=== PATIENT | female | born 1970 | race Caucasian/White ===

== ENCOUNTER 2025-02-26 07:18 | Observation (INO) ==
--- NOTE | 2025-02-20 13:18 | Anesthesiology Consultation ---
Date of Service February 20, 2025 Assessment & Plan (1) Encounter for pre-operative examination: Chart Review Chart Review: Acceptable Risk for Surgery and Patient NOT seen in Pre Admission Testing T11 compression fracture 12/2024 -Infectious Disease screening: Per PAT nursing assessment on 02/18/25. No known infectious disease contacts in past 10 days or current infectious disease symptoms. No recent travel outside the country. History Surgery Operation Date: 02/26/25 09:25 Proposed Procedures p Cystoscopy, Ureteronephroscopy, Retrograde Pyelogram, with Possible Ureteral Dilation, Laser Destruction or Extraction of the Stone, Insertion or Exchange of Stent Catheter - Right - Dusty Castro MD Height/Weight Height: 5 ft 5 in Weight: 70.307 kg Allergies Allergy/AdvReac Type Severity Reaction Status Date / Time tetanus toxoid, adsorbed Allergy Unknown UNKNOWN Verified 02/18/25 13:51 PER PT codeine AdvReac Unknown Vomiting Verified 02/18/25 13:51 Medications Home Medications Medication Instructions Recorded Confirmed Last Taken albuterol sulfate 90 mcg/actuation 1 inh inhalation QID PRN Wheezing 04/25/23 02/18/25 Unknown aerosol inhaler atorvastatin 10 mg tablet 10 mg PO QAM 04/25/23 02/18/25 Unknown baclofen 10 mg tablet 10 mg PO DAILY PRN Spasms 04/25/23 02/18/25 Unknown duloxetine 30 mg capsule,delayed 30 mg PO HS 04/25/23 02/18/25 Unknown release (Cymbalta) furosemide 40 mg tablet (Lasix) 40 mg PO QAM 04/25/23 02/18/25 Unknown gabapentin 600 mg tablet 600 mg PO TID 04/25/23 02/18/25 Unknown hydroxyzine HCl 25 mg tablet 25 mg PO BID PRN Anxiety 04/25/23 02/18/25 Unknown ibuprofen 800 mg tablet 800 mg PO Q8H PRN Pain 04/25/23 02/18/25 Unknown linaclotide 72 mcg capsule 72 mcg PO QAM 04/25/23 02/18/25 Unknown (Linzess) melatonin 10 mg tablet 10 mg PO HS PRN Sleep 04/25/23 02/18/25 Unknown oxcarbazepine 300 mg tablet 300 mg PO TID 04/25/23 02/18/25 Unknown oxycodone-acetaminophen 7.5 mg-325 1 tab PO QID PRN Pain 04/25/23 02/18/25 Unknown mg tablet paroxetine HCl 40 mg tablet 40 mg PO QAM 04/25/23 02/18/25 Unknown prazosin 2 mg capsule 2 mg PO QPM 04/25/23 02/18/25 Unknown morphine 15 mg tablet,extended 15 mg PO HS 05/03/23 02/18/25 Unknown release quetiapine 100 mg tablet 100 mg PO QPM 09/25/23 02/18/25 Unknown quetiapine 400 mg tablet (Seroquel) 400 mg PO HS 09/25/23 02/18/25 Unknown Past Medical History Medical History Anxiety Cervical radiculopathy sees pain management Chronic back pain Demyelinating changes in brain pt unaware Brain MRI 2022 showed small focal areas of hyperintensity that could represent demyelinating disease but also could be inflammatory/infectious (Lymes), migraines or chronic microvascular disease Depression Disorder of lung pt reports just gets s.o.b on occ. prn inh for this, no asthma dx. Fracture of T11 vertebra from fall on Dec 12, 2024 > no breathing issues, just pain, trying to get in with [facility], awaiting appt. Mild compression fracture of T11 noted on A/P CT from 12/19/24 Gait abnormality GERD (gastroesophageal reflux disease) History of COVID-2020 History of kidney stones passed on own in past Hyperlipidemia IBS (irritable bowel syndrome) Kidney cysts Migraines Night terrors PTSD (post-traumatic stress disorder) Tremor Past Family History Family History Grandfather (Paternal) Myocardial infarction Hypertension Uncle Myocardial infarction Father Hypertension Grandmother (Maternal) Hypertension Stroke Mother Rheumatoid arthritis Past Surgical History Surgical History History of appendectomy History of bunionectomy right foot x4 total due to getting sepsis from the sx History of colonoscopy History of esophagogastroduodenoscopy (EGD) History of hysterectomy History of tonsillectomy History of tooth extraction Hx of fusion of cervical spine C5-6 > limited ROM all directions Social History Smoking Status: Current every day smoker Smoking cigarettes per day: 10-12 cigs per day > advised npo by PAT nursing Do You Dip or Chew Tobacco: No Hx Alcohol Use: No Hx Substance Use: No substance use type: does not use Testing Laboratory Results 02/06/25= WBC: 9.0 H/H: 10.6/32.6 PLATELETS: 235 SODIUM: 137 POTASSIUM: 4.4 CHLORIDE: 110 CO2: 26.0 BUN: 20.0 CREATININE: 1.40 GLUCOSE: 73 GFR: 44 Electrocardiogram Date: 02/06/25 SR at 86bpm Possible left atrial enlargement Possible RV conduction delay unconfirmed- will need reviewed by anesthesiologist DOS Chest X-Ray Date: 02/06/25 Findings: + NAD Other Testing MRI Brain 03/24/23= Multiple small focal areas of FLAIR hyperintensities noted bilaterally within the deep white matter. Differential considerations include demyelinating disorders such as MS, inflammatory/infectious disorders such as Lymes, migraines and chronic microvascular ischemia changes
[~2025-02-26 07:18] MED LIST: DEXAMETHASONE SOD INJ 4 MG/ML VIAL ONE; GLYCOPYRROLATE 0.2 MG/ML VIAL ONE; LIDOCAINE 2% 2 ML VIAL/AMP(20MG/ML) INFIL ONE; MIDAZOLAM HCL 1 MG/ML 2ML VIAL ONE; ONDANSETRON INJ 2 MG/ML 2 ML VIAL ONE; PROPOFOL IV EMULSION 10 MG/ML 20 ML VIAL IV ONE
[2025-02-26] MEDS: LR 15ML/HR IV SCH (07:52)
[2025-02-26] MEDS ORDERED: PROMETHAZINE HCL 6.25 MG in SODIUM CHLORIDE 0.9% 50 ML IV PRN (08:33)
[2025-02-26] MEDS ORDERED: ATROPINE SULFATE 0.1 MG/ML 10ML SYR IV PRN (08:33)
--- NOTE | 2025-02-26 09:04 | History & Physical Bridge Note ---
Date of Service February 26, 2025 History & Physical Bridge Note I have examined the patient, reviewed the History & Physical and in the interval since the performance of the History & Physical I have noted the following changes of clinical significance: no changes noted
[2025-02-26] MEDS ORDERED: KETAMINE HCL 10MG/ML SYR ONE (09:51)
[2025-02-26] MEDS ORDERED: DIATRIZOATE MEGLUMINE 30% 100ML VIAL INSTIL PRN (10:23)
--- NOTE | 2025-02-26 10:37 | Post Operative Brief Note ---
PG Immediate Post Op with CF Date of Surgery February 26, 2025 Pre & Post Diagnosis Operation Date: 02/26/25 08:35 Pre-Op Diagnosis: Calculus of Ureter Post-Op Diagnosis: Calculus of Ureter I identified the patient and participated in the time-out.: Yes Procedure Operation Date: 02/26/25 08:35 Actual Procedures p Cystoscopy, Ureteronephroscopy, Retrograde Pyelogram, with Ureteral Dilation, Laser Destruction of the Stone, Insertion of Stent Catheter - Right(Right) - Dusty Castro MD Surgeon Dusty Castro MD Digital Media Associate na Estimated Blood Loss 5 Findings Consistent with Post-Op Diagnosis impacted right proximal ureteral stone Specimens Specimen Description: #1- Urine for culture
--- NOTE | 2025-02-26 10:50 | Operative Report ---
PG Post Operative Report Pre & Post Diagnosis Operation Date: 02/26/25 08:35 Pre-Op Diagnosis: Calculus of Ureter Post-Op Diagnosis: Calculus of Ureter I identified the patient and participated in the time-out.: Yes Procedure Operation Date: 02/26/25 08:35 Actual Procedures p Cystoscopy, Ureteronephroscopy, Retrograde Pyelogram, with Ureteral Dilation, Laser Destruction of the Stone, (Right) - Dusty Castro MD s Insertion of Stent Catheter - Right(Right) - Dusty Castro MD Surgeon Dusty Castro MD Machine Assistant na Estimated Blood Loss 5 Findings Consistent with Post-Op Diagnosis Specimens right renal pelvis urine for culture Description of Procedure SURGEON: Dr. Castro POULTRY SLAUGHTERER: N/A PREOPERATIVE DIAGNOSIS: right ureteral stone POSTOPERATIVE DIAGNOSIS: impacted right ureteral stone PROCEDURE: cystoscopy, right retrograde pyelogram, ureteral dilation, right semi rigid and flexible ureteroscopy, laser lithotripsy, right ureteral stent placement FINDINGS: 1. impacted right ureteral stone, fragmented to small passable pieces right ureteral stent placed curls in renal pelvis and bladder secured to string ANESTHESIA: General ESTIMATED BLOOD LOSS: N/A TUBES AND DRAINS: right ureteral stent 6 fr x 24 cm SPECIMENS: none COMPLICATIONS: none INDICATIONS FOR PROCEDURE: See preoperative diagnosis OPERATIVE DETAIL: The patient was prepped and draped in the usual fashion in the operating room. Antibiotics were given prior to starting the procedure. A well lubricated rigid cystoscope was inserted into the urethral meatus and advanced into the bladder. Care was taken to keep the lumen in the center of view. Cystourethroscopy was completed and unremarkable. The left and right ureteral orifices were identified in the orthotopic positions. A 5 fr open ended ureteral catheter was advanced into the right ureteral orifice over a straight sensor wire. The wire was removed and a retrograde pyelogram was performed and notable for a ureteral filling defect consistent with stone and no opacification of the collecting system. The wire was replaced and the open ended catheter was removed. The cystoscope was removed with the sensor wire and the bladder was drained. No- Touch Semi rigid ureteroscopy was attempted with the disposable salazar ureteroscope but was unable to traverse the UO. A wire was placed through the working channel into the UO and the scope was successfully manipulated into the distal ureter thent eh wire was removed and the scope was advanced to the mid ureter. It was impossible to traverse further seemingly the scope was too inflexible to advance without undue tension. A wire was placed the scope was removed and a flexible ureteroscope was placed over the wire then advanced to the proximal ureter where a large impacted ureteral stone was encountered. The stone was gradually fragmented to completion using a 200 micron thulium laser fiber. The bladder was serially evacuated to reduce intrarenal pressure, once a lumen was established a retrograde was performed and the renal pelvis was serially evacuated using an open ended catheter to reduce renal pressure. Low power settings were used on the laser, 0.8 J at 10 per second in short bursts with maximal irrigation was used to reduce this patients already high risk of ureteral stricture. Once the stone burden was cleared pyeloscopy was attmepoted to look for residual fragments this was unsuccessful as the narrowed ureter would not accommodate the scope without restricted mobility. A sensor wire was introduced with positioning confirmed on fluoroscopy. A 6 fr x 24 cm ureteral stent was then placed with positioning confirmed fluoroscopically. All parts of the cystoscope and ureteroscope were removed intact from the patient. The patient tolerated the procedure well. Please note thatI was present for and directly performed all components of the procedure. I attest to the content of the Intraoperative Record and any orders documented therein. Any exceptions are noted below.
[2025-02-26] MEDS: ALBUT/IPRATROP 3MG/0.5MG NEB 3 ML VIAL NEB STA (11:13)
[2025-02-26] MEDS: HYDROmorphone INJ 2 MG/ML SYR/VIAL IV PRN ×2 (11:39→14:24)
--- NOTE | 2025-02-26 11:39 | Fluoroscopy Report ---
INTRAOPERATIVE FLUOROSCOPIC IMAGES: CLINICAL HISTORY: Hydronephrosis Fluoroscopy time: 28 seconds Number of fluoroscopic images: 7 Ka,r: 7.4 mGy: FINDINGS: 7 fluoroscopic spot images are provided for interpretation. The right ureter was catheteriz ed and retrograde fashion. A ureteroscope was introduced. There is right-sided hydronephrosis. The fi nal images demonstrate placement of a double pigtail right-sided ureteral stent. The proximal pigtail is not fully formed. IMPRESSION: Fluoroscopic spot images obtained during a retrograde study and placement of a right-side d nephroureteral stent Electronically signed by: Murtaza Samson M.D. 02/26/2025 11:38 AM
--- NOTE | 2025-02-26 12:56 | XRay Report ---
XR chest 1V portable CLINICAL HISTORY: Pt with supplemental O2 requirement postop COMPARISON STUDY: 10/25/2011 FINDINGS: The cardiac and mediastinal contours are normal. There is no focal pulmonary consolidation. There are no pleural effusions. There is no pneumothorax. There is a slight interval increase in int erstitium which may represent mild fluid overload. Note is made of postsurgical changes within the ce rvical spine. IMPRESSION: 1. Slight interval elevation of the interstitium suggesting mild fluid overload. No evidence of focal pulmonary consolidation . ACT 112: Negative or not required by law. Electronically signed by: Murtaza Samson M.D. 02/26/2025 12:55 PM
--- NOTE | 2025-02-26 12:59 | Anesthesiology Progress Note ---
Date of Service February 26, 2025 Anesthesia Post Procedure Vital Signs Vital Signs: Temp Pulse Pulse Resp BP Pulse Ox O2 Del Method 02/26/25 12:40 98 H 17 136/98 96 Nasal Cannula 02/26/25 12:30 94 H 16 139/65 88 L Room Air 02/26/25 12:20 95 H 14 131/99 92 Room Air 02/26/25 12:10 36.6 C 96 H 20 144/93 H 92 Room Air 02/26/25 12:00 91 H 15 128/90 93 Room Air 02/26/25 11:50 88 15 130/91 92 Nasal Cannula 02/26/25 11:40 88 15 134/94 93 Nasal Cannula 02/26/25 11:30 87 20 129/91 90 Room Air 02/26/25 11:20 82 22 138/94 100 Nebulizer 02/26/25 11:10 83 16 144/92 H 92 Room Air 02/26/25 11:00 86 16 146/90 H 89 L Room Air 02/26/25 10:50 86 15 149/96 H 89 L Room Air 02/26/25 10:40 78 16 122/84 97 Oxymask 02/26/25 10:31 36.1 C L 81 14 114/73 96 Oxymask 02/26/25 07:47 36.7 C 86 18 143/97 H 95 Room Air O2 Flow Rate 02/26/25 12:40 3 02/26/25 12:30 02/26/25 12:20 02/26/25 12:10 0 02/26/25 12:00 0 02/26/25 11:50 2 02/26/25 11:40 2 02/26/25 11:30 02/26/25 11:20 12 02/26/25 11:10 0 02/26/25 11:00 0 02/26/25 10:50 0 02/26/25 10:40 6 02/26/25 10:31 6 02/26/25 07:47 Pain Intensity Back: Pain Intensity: 7 Right Flank: Pain Intensity: 7 Transfer of Care Handoff Completed per policy Notes Mental Status: alert / awake / arousable and participated in evaluation Nausea / Vomiting: adequately controlled Pain: adequately controlled Airway Patency, RR, SpO2: see Notes below BP & HR: stable & adequate Hydration State: stable & adequate Anesthetic Complications: no major complications apparent and Pt Satisfied with anesthetic care Notes: Pt with ongoing O2 requirement in PACU. Surgeon informed, chest Xray ordered. We are preparing to admit Ms. Cloud. There is some concern for developing sepsis, but she currently has stable BP and adequated oxygenation with O2 supplementation.
[2025-02-26] MEDS: HYDROmorphone INJ 0.5 MG/0.5 ML SYR ONE (13:46)
[2025-02-26] MEDS: FUROSEMIDE INJ 20 MG/2 ML VIAL IV ONE (13:47)
[2025-02-26] MEDS ORDERED: ALBUTEROL HFA 8 GM INHALER INH PRN (14:55)
[2025-02-26] MEDS ORDERED: FUROSEMIDE 40 MG TAB PO PRN (14:55)
[2025-02-26] MEDS: cefTRIAXone SODIUM 1,000 MG MINI-B 50 ML IV SCH (16:05)
[2025-02-26] MEDS: ALBUT/IPRATROP 3MG/0.5MG NEB 3 ML VIAL ONE (16:05)
[2025-02-26] MEDS ORDERED: MELATONIN 3 MG TAB PO PRN (16:06)
--- NOTE | 2025-02-26 16:42 | Hospitalist Consultation ---
Date of Consultation February 26, 2025 Assessment & Plan (1) Postoperative hypoxia: (2) Chronic pain: (3) Hyperlipidemia: (4) Edema: (5) Anxiety: Plan Do is a pleasant 54-year-old woman with PMH of hyperlipidemia, GERD, lower extremity swelling, chronic neck/lower back pain, depression, anxiety. She presented for cystoscopy, ureteral nephroscopy, retrograde pyelogram, ureteral dilation, laser destruction of stone with Dr. Castro on 02/26/2025. She became hypoxic postoperatively, requiring supplemental O2. Hospital medicine was consulted for medical management and postoperative hypoxia. #Postoperative hypoxia s/p urological intervention by Dr. Castro. No operative complications. Suspect this is multifactorial between anesthesia, parenteral pain medication administration, and IV fluids intraoperatively - Postoperative chest x-ray suggestive of mild fluid overload. No evidence of focal pulmonary consolidation - Received Lasix 20 mg IV x 1 and 1 DuoNeb treatment in PACU - Euvolemic on physical exam. Monitor volume status in AM to assess for need of further Lasix - Echocardiogram ordered to assess for underlying CHF. She takes Lasix as needed at home for lower extremity swelling, but denies a history of CHF diagnosis - Start incentive spirometer Q1HWA, reviewed with patient how to use this - Wean off supplemental O2 as able to maintain an O2 sat >90% #Ureteral calculus - Will defer perioperative antibiotics, pain regimen, DVT prophylaxis, diet, and discharge planning to primary team #Frequent falls patient reports multiple falls with associated injuries ongoing for 10 years now. She feels that she is "neurologically declining." She has seen neurology outpatient a couple years ago but did not have continued follow-up with them. She would like to reestablish with neurology outpatient #Hyperlipidemia continue atorvastatin 10 mg daily #Chronic neck/lower back pain Home regimen includes baclofen 10 mg daily as needed for spasms, gabapentin 600 mg TID, ibuprofen 800 mg Q8H PRN pain, morphine ER 15 mg HS, oxycodoneacetaminophen 7.5325 mg QID PRN pain #Mental health continue duloxetine 30 mg HS, hydroxyzine 25 mg BID PRN anxiety, paroxetine 40 mg daily, quetiapine 100 mg @1700 and 400 mg HS Hospital medicine will continue to follow. Please reach out with any additional questions or concerns. Supervising Physician Co-Signing Physician Notes Attending Attestation & Consult Note: Pt seen/examined, chart reviewed, consult care plan d/w FILI Colunga. I agree w/ the shrestha components of her consult documentation with the following addition/clarification - -hypoxia - "acute post-op pulmonary insufficiency" 54yo female with GERD, depression/anxiety, hyperlipidemia, thoracic spine compression fracture, and kidney stone. Today she underwent Cystoscopy, Ureteronephroscopy, Retrograde Pyelogram, Ureteral Dilation, Laser Destruction of a right-sided kidney stone (8mm, proximal right ureter), and right-sided ureteral stent placement by Dr Dusty Castro. Post-op she was noted to have hypoxia and supplemental O2 was provided. CXR with possible pulmonary edema; IV lasix given. I saw the patient on the med/surg floor hours after the IV lasix was given. Despite still requiring NC O2 she denies any pulmonary complaints. She c/o right sided flank/abdominal pain & asks for pain meds. PMH, PSH, allergies, meds, sochx - reviewed VSS, afebrile gen - lying in bed, no respiratory distress, c/o pain in abdomen neck - JVD+ mouth - MMM heart - RRR, s1 s2, no murmur lungs - b/l basilar rales; no wheeze abd - mildly tender right side of abd to palpation, BS+, ND ext - trace edema b/l shins, pulses b/l feet 2+ outpatient labs from 02/06/25 - Cr 1.4 CBC - hemoglobin 10.6 A/P: 1. acute post-op pulmonary insufficiency - 2nd to acute CHF vs atelectasis vs combination of factors vs other -agree with IV lasix -repeat BMP am -re-eval need for additional IV lasix tomorrow -echo 2. right-sided kidney stone - s/p laser litho today, s/p right stent placement 3. ?CKD - Cr 1.4 on 02/06/25; trend BMP daily Bhaskar Parrish MD History of Present Illness Reason for Consultation: Post op hypoxia, medical management Requesting Physician: Dusty Castro MD Attending Physician: Dusty Castro MD History of Present Illness Do is a pleasant 54-year-old woman with PMH of hyperlipidemia, GERD, lower extremity swelling, chronic neck/lower back pain, depression, anxiety. She presented for cystoscopy, ureteral nephroscopy, retrograde pyelogram, ureteral dilation, laser destruction of stone with Dr. Castro on 02/26/2025. Per review of operative report, EBL was listed as 5 mL, and there were no complications noted. Per review of patient's vitals postop, she has been requiring supplemental oxygen to maintain her O2 saturation; vitals otherwise stable. Patient reports painful bladder spasms at time of consult. She reports a constant achy sensation with intermittent sharp stabbing pain. She denies any shortness of breath or difficulty breathing. She denies wheezing. She does not wear supplemental oxygen at baseline. She has voided without difficulty postprocedure. She has not passed gas or had a BM yet. She has not had anything to eat or drink since her procedure. She denies headache, lightheadedness, sore throat, nausea, abdominal pain, chest pain. She states that she takes Lasix as needed for lower extremity swelling, but does not need this very often. She denies ever being told of a heart failure diagnosis. She is in a cervical collar and states this is due to a recent fall with associated T3 fracture. She states that she has had frequent falls with injuries for 10 years now. She states "neurologically I am on a downside." She explains that she saw neurology outpatient about 3 years ago regarding these fr equent falls and feeling like something is wrong neurologically, however she did not have further follow-up with neurology after her initial visit. She is interested in reestablishing with neurology outpatient. Allergies Allergy/AdvReac Type Severity Reaction Status Date / Time tetanus toxoid, adsorbed Allergy Unknown UNKNOWN Verified 02/26/25 07:42 PER PT codeine AdvReac Unknown Vomiting Verified 02/26/25 07:42 Home Medications Medication Instructions Recorded Confirmed Type albuterol sulfate 90 mcg/actuation 1 inh inhalation QID PRN Wheezing 04/25/23 02/26/25 History aerosol inhaler atorvastatin 10 mg tablet 10 mg PO QAM 04/25/23 02/26/25 History baclofen 10 mg tablet 10 mg PO DAILY PRN Spasms 04/25/23 02/26/25 History duloxetine 30 mg capsule,delayed 30 mg PO HS 04/25/23 02/26/25 History release (Cymbalta) furosemide 40 mg tablet (Lasix) 40 mg PO QAM PRN Other 04/25/23 02/26/25 History gabapentin 600 mg tablet 600 mg PO TID 04/25/23 02/26/25 History hydroxyzine HCl 25 mg tablet 25 mg PO BID PRN Anxiety 04/25/23 02/26/25 History ibuprofen 800 mg tablet 800 mg PO Q8H PRN Pain 04/25/23 02/26/25 History linaclotide 72 mcg capsule 72 mcg PO QAM PRN Constipation 04/25/23 02/26/25 History (Linzess) melatonin 10 mg tablet 10 mg PO HS PRN Sleep 04/25/23 02/26/25 History oxcarbazepine 300 mg tablet 300 mg PO TID 04/25/23 02/26/25 History (Trileptal) oxycodone-acetaminophen 7.5 mg-325 1 tab PO QID PRN Pain 04/25/23 02/26/25 History mg tablet paroxetine HCl 40 mg tablet (Paxil) 40 mg PO QAM 04/25/23 02/26/25 History prazosin 2 mg capsule 2 mg PO QPM 04/25/23 02/26/25 History morphine 15 mg tablet,extended 15 mg PO HS 05/03/23 02/26/25 History release quetiapine 100 mg tablet (Seroquel) 100 mg PO QPM 09/25/23 02/26/25 History quetiapine 400 mg tablet (Seroquel) 400 mg PO HS 09/25/23 02/26/25 History sulfamethoxazole 800 1 tab PO BID 5 days #10 tabs 02/26/25 Rx mg-trimethoprim 160 mg tablet (Bactrim DS) Patient History Medical History Anxiety Cervical radiculopathy sees pain management Chronic back pain Demyelinating changes in brain pt unaware Brain MRI 2022 showed small focal areas of hyperintensity that could represent demyelinating disease but also could be inflammatory/infectious (Lymes), migraines or chronic microvascular disease Depression Disorder of lung pt reports just gets s.o.b on occ. prn inh for this, no asthma dx. Fracture of T11 vertebra from fall on Dec 12, 2024 > no breathing issues, just pain, trying to get in with [facility], awaiting appt. Mild compression fracture of T11 noted on A/P CT from 12/19/24 Gait abnormality GERD (gastroesophageal reflux disease) History of COVID-19 2020 History of kidney stones passed on own in past Hyperlipidemia IBS (irritable bowel syndrome) Kidney cysts Migraines Night terrors PTSD (post-traumatic stress disorder) Tremor Surgical History History of appendectomy History of bunionectomy right foot x4 total due to getting sepsis from the sx History of colonoscopy History of esophagogastroduodenoscopy (EGD) History of hysterectomy History of tonsillectomy History of tooth extraction Hx of fusion of cervical spine C5-6 > limited ROM all directions Family History Grandfather (Paternal) Myocardial infarction Hypertension Uncle Myocardial infarction Father Hypertension Grandmother (Maternal) Hypertension Stroke Mother Rheumatoid arthritis Social History Smoking Status: Current every day smoker Tobacco Type: Cigarettes Cigarettes Per Day: 10-12 cigs per day > advised npo by PAT nursing; Second Hand Exposure: No; Do You Dip or Chew Tobacco: No; Tobacco Cessation Education Requested by Patient: No Hx Alcohol Use: No Hx Substance Use: No Preferred Language: Slovenian Communication Ability: Effective Fine Sander Required: No Beliefs That Will Affect Care: None Current Living Situation: Significant Other Other Information That Helps Us Care for You: No Feels Safe at Home: Yes Safety Concerns: Feels Safe At This Time Assistive Devices: Glasses Review of Systems Review of Systems: All systems reviewed & are unremarkable except as noted in HPI & below Genitourinary: + pelvic pain Physical Exam Physical Exam: General: No acute distress, nondiaphoretic, well-developed, well-nourished. Skin: Warm, dry. No rashes or peripheral edema noted. Cardiac: Regular rate and rhythm without murmurs gallops or rubs. Pulm: Diminished but otherwise clear to auscultation bilaterally without wheezes, rales or rhonchi. Normal respiratory effort. 95% on 3 L NC. Abdominal: Soft, nontender, nondistended. Bowel sounds present. : No Whitley catheter present. Neuro: A&O x3. No focal neurological deficits. Results & Data Results & Data Vital Signs (Past 12 Hours) Vital Signs Temp Pulse Pulse Resp BP Pulse Ox O2 Del Method 02/26/25 16:34 Nasal Cannula 02/26/25 16:29 98.4 F 89 16 115/63 94 Nasal Cannula 02/26/25 16:02 98.2 F 97 H 18 129/71 94 Nasal Cannula 02/26/25 15:40 97 H 20 133/63 94 Nasal Cannula 02/26/25 15:10 103 H 24 145/95 H 92 Nasal Cannula 02/26/25 14:55 101 H 21 151/97 H 94 Nasal Cannula 02/26/25 14:40 100 H 21 140/95 93 Nasal Cannula 02/26/25 14:25 99 H 20 147/94 H 94 Nasal Cannula 02/26/25 14:10 97 H 15 147/89 H 93 Nasal Cannula 02/26/25 14:00 93 H 24 143/97 H 95 Nasal Cannula 02/26/25 13:50 97 H 18 145/91 H 92 Room Air 02/26/25 13:40 100 H 17 146/99 H 91 Room Air 02/26/25 13:30 94 H 17 154/102 H 91 Room Air 02/26/25 13:20 96 H 13 145/94 H 91 Room Air 02/26/25 13:10 97 H 24 137/48 L 94 Room Air 02/26/25 13:00 94 H 16 135/85 95 Nasal Cannula 02/26/25 12:50 98 H 16 146/94 H 95 Nasal Cannula 02/26/25 12:40 98 H 17 136/98 96 Nasal Cannula 02/26/25 12:30 94 H 16 139/65 88 L Room Air 02/26/25 12:20 95 H 14 131/99 92 Room Air 02/26/25 12:10 97.9 F 96 H 20 144/93 H 92 Room Air 02/26/25 12:00 91 H 15 128/90 93 Room Air 02/26/25 11:50 88 15 130/91 92 Nasal Cannula 02/26/25 11:40 88 15 134/94 93 Nasal Cannula 02/26/25 11:30 87 20 129/91 90 Room Air 02/26/25 11:20 82 22 138/94 100 Nebulizer 02/26/25 11:10 83 16 144/92 H 92 Room Air 02/26/25 11:00 86 16 146/90 H 89 L Room Air 02/26/25 10:50 86 15 149/96 H 89 L Room Air 02/26/25 10:40 78 16 122/84 97 Oxymask 02/26/25 10:31 97.0 F L 81 14 114/73 96 Oxymask 02/26/25 07:47 98.1 F 86 18 143/97 H 95 Room Air O2 Flow Rate 02/26/25 16:34 3 02/26/25 16:29 3 02/26/25 16:02 3 02/26/25 15:40 3 02/26/25 15:10 3 02/26/25 14:55 3 02/26/25 14:40 3 02/26/25 14:25 3 02/26/25 14:10 3 02/26/25 14:00 3 02/26/25 13:50 0 02/26/25 13:40 0 02/26/25 13:30 0 02/26/25 13:20 0 02/26/25 13:10 0 02/26/25 13:00 3 02/26/25 12:50 3 02/26/25 12:40 3 02/26/25 12:30 02/26/25 12:20 02/26/25 12:10 0 02/26/25 12:00 0 02/26/25 11:50 2 02/26/25 11:40 2 02/26/25 11:30 02/26/25 11:20 12 02/26/25 11:10 0 02/26/25 11:00 0 02/26/25 10:50 0 02/26/25 10:40 6 02/26/25 10:31 6 02/26/25 07:47 Diagnostic Findings Reviewed postoperative CXR Chest X-Ray 02/26/25 12:36 XR chest 1V portable CLINICAL HISTORY: Pt with supplemental O2 requirement postop COMPARISON STUDY: 10/25/2011 FINDINGS: The cardiac and mediastinal contours are normal. There is no focal pulmonary consolidation. There are no pleural effusions. There is no pneumothorax. There is a slight interval increase in interstitium which may represent mild fluid overload. Note is made of postsurgical changes within the cervical spine. IMPRESSION: 1. Slight interval elevation of the interstitium suggesting mild fluid overload. No evidence of focal pulmonary consolidation . ACT 112: Negative or not required by law. Electronically signed by: Murtaza Samson M.D. 02/26/2025 12:55 PM PG Care Time/CCT Total # of Minutes Spent Total Time Spent with Patient: Total time spent is greater than 50% in coordination of care (as documented) at patient's floor/unit and/or counseling patient: Coding Level of Care Code 35398 IN/OBS CONSULT LVL 4,60M Diagnoses Postoperative hypoxia R09.02; Z98.890 Chronic pain G89.29 Hyperlipidemia E78.5 Edema R60.9 Anxiety F41.9
[2025-02-26] MEDS: BACLOFEN 10 MG TAB PO PRN (17:18)
[2025-02-26] MEDS: IBUPROFEN 800 MG TAB PO PRN (19:45)
[2025-02-26] MEDS: MoRPHine SULFATE CR 15 MG TABCR PO SCH (20:08)
[2025-02-26] MEDS: GABAPENTIN 600 MG TAB PO SCH (20:08)
[2025-02-26] MEDS: PRAZOSIN HCL 1 MG CAP PO SCH (20:09)
[2025-02-26] MEDS: PHENAZOPYRIDINE HCL 200 MG TAB PO STA (23:09)
[2025-02-27 02:53] VITALS: TEMP 98.1
[2025-02-27 07:45] LABS: Hematocrit (blood only) 31.5 % (37.0-47.0); Hemoglobin 10.3 g/dl (12.0-16.0); Mean Corpuscular Hemoglobin 29.9 pg (25.0-34.0); Mean Corpuscular Volume 91.3 fL (80.0-100.0); Platelet Count 216 K/uL (130-400); RDW Standard Deviation 48.3 fL (36.4-46.3); Red Blood Count 3.45 M/uL (4.20-5.40); White Blood Count 7.38 K/ul (4.8-10.8)
[2025-02-27 08:02] LABS: Anion Gap 6.0 (3-11); Blood Urea Nitrogen 20.0 mg/dl (6-23); Calcium 8.5 mg/dl (8.6-10.3); Carbon Dioxide 27.0 mmol/L (21-32); Chloride 103.0 mmol/L (98-107); Creatinine Clr Calc Pharmacy 39.8 ml/min; Glucose 98.0 mg/dl (70-99(Fasting)); Potassium 4.6 mmol/L (3.5-5.1); Sodium 136.0 mmol/L (136-145)
--- NOTE | 2025-02-27 08:17 | Urology Progress Note ---
<Statement entered by Dusty Castro MD - 02/27/25 12:20> Chart reviewed plan reviewed and agree as written. Date of Service February 27, 2025 Assessment & Plan (1) Right ureteral stone: (2) Chronic pain: Plan 54-year-old female who underwent cystoscopy, right URS with stone destruction and right stent placement on 02/26/2025 POD #1 s/p cystoscopy, right uteroscopy, stone destruction, right ureteral stent placement Unfortunately due to hypoxia patient had to be admitted postoperatively- received duoneb treatments, lasix for fluid overload, echo for hx CHF Tolerating the ureteral stent, does admit to pain that is somewhat controlled by narcotics Labs reviewed -creatinine 1.6, WBCs 7.38, hemoglobin 10.3 Urine culture from OR is currently pending Chest xray ordered to check for additional fluid overload by hospitalist team today-Per hospitalist will give an additional dose of Lasix if so Echo is pending Continue supportive care and monitoring. No plan for further urologic intervention during this admission. Patient clinically stable will plan for discharge. Will arrange outpatient follow-up with our service for follow-up care for nephrolithiasis. Admission and Anticipated Discharge Date Admission Date: February 26, 2025 Subjective Patient resting comfortably in bed Says pain is 6 out of 10, lower right abdominal area, stabbing in nature-is receiving pain medication per report Does admit to urgency, frequency somewhat relieved by Azo Denies fevers, chills, nausea, vomiting No other acute urological concerns She was still 95% on 2 L Review of Systems Constitutional: as per Subjective / HPI Genitourinary: as per Subjective / HPI Physical Exam Constitutional: well developed and well nourished; no acute distress Respiratory: normal respiratory effort and able to speak in complete sentences Musculoskeletal: Extremities: extremities normal to inspection Psychiatric: Orientation: alert and oriented x 3 Results & Data Vital Signs (Past 12 Hours) Vital Signs Temp Pulse Pulse Resp BP Pulse Ox O2 Del Method 02/27/25 07:50 36.7 C 84 16 131/83 95 Nasal Cannula 02/27/25 02:52 36.7 C 92 H 16 125/76 93 Room Air 02/26/25 23:37 36.8 C 77 16 133/77 95 Room Air O2 Flow Rate 02/27/25 07:50 2 02/27/25 02:52 02/26/25 23:37 PG Care Time/CCT Total # of Minutes Spent Total Time Spent with Patient: Total time spent is greater than 50% in coordination of care (as documented) at patient's floor/unit and/or counseling patient: Coding Level of Care Code 24978 SUB INP/OBS CARE 2/35MIN Diagnoses Right ureteral stone N20.1 Chronic pain G89.29
[2025-02-27] MEDS: ATORVASTATIN 10 MG TAB PO SCH (08:46)
--- NOTE | 2025-02-27 09:16 | XRay Report ---
XR chest 1V portable CLINICAL HISTORY: postop hypoxia COMPARISON STUDY: 02/26/2025 FINDINGS: The cardiac and mediastinal contours remain stable. Mild interstitial thickening remains un changed. There is no focal pulmonary consolidation. There are no pleural effusions. There is no pneum othorax. There is no pneumomediastinum. Postsurgical changes are present within the cervical spine. IMPRESSION: 1. Stable mildly elevated interstitium. Mild fluid overload not excluded. No focal pulmonary consolid ation ACT 112: Negative or not required by law. Electronically signed by: Murtaza Samson M.D. 02/27/2025 9:13 AM
[2025-02-27] MEDS: ALBUT/IPRATROP 3MG/0.5MG NEB 3 ML VIAL NEB STA (09:26)
[2025-02-27] MEDS ORDERED: FUROSEMIDE INJ 20 MG/2 ML VIAL IV ONE (09:38)
--- NOTE | 2025-02-27 09:44 | XCELERA ---
[id number] [id number]
--- NOTE | 2025-02-27 10:21 | Hospitalist Progress Note ---
Date of Service February 27, 2025 Assessment & Plan (1) Postoperative hypoxia: (2) Chronic pain: (3) Hyperlipidemia: (4) Edema: (5) Anxiety: Plan Do is a pleasant 54-year-old woman with PMH of hyperlipidemia, GERD, lower extremity swelling, chronic neck/lower back pain, depression, anxiety. She presented for cystoscopy, ureteral nephroscopy, retrograde pyelogram, ureteral dilation, laser destruction of stone with Dr. Castro on 02/26/2025. She became hypoxic postoperatively, requiring supplemental O2. Hospital medicine was consulted for medical management and postoperative hypoxia. #Postoperative hypoxia s/p urological intervention by Dr. Castro. No operative complications. Suspect this is multifactorial between anesthesia, parenteral pain medication administration, and IV fluids intraoperatively - Postoperative chest x-ray suggestive of mild fluid overload. No evidence of focal pulmonary consolidation - Received Lasix 20 mg IV x 1 and 1 DuoNeb treatment in PACU - Repeated CXR 02/27 AM which mildly elevated interstitium, mild fluid overload not excluded. No pleural effusions or focal pulmonary consolidation - Provided additional DuoNeb x 1 on 02/27. No further Lasix given - Echocardiogram with EF 60-65%, normal LV size and systolic function, no regional wall motion abnormalities, mild concentric LVH, mild MR - Has been weaned off O2 and remains stable on room air with clear lung sounds #Ureteral calculus - Will defer perioperative antibiotics, pain regimen, DVT prophylaxis, diet, and discharge planning to primary team #Frequent falls patient reports multiple falls with associated injuries ongoing for 10 years now. She feels that she is "neurologically declining." She has seen neurology outpatient a couple years ago but did not have continued follow-up with them. She would like to reestablish with neurology outpatient, specifically with Dr. Hawley - will defer referral to PCP #Hyperlipidemia continue atorvastatin 10 mg daily #Chronic neck/lower back pain Home regimen includes baclofen 10 mg daily as needed for spasms, gabapentin 600 mg TID, ibuprofen 800 mg Q8H PRN pain, morphine ER 15 mg HS, oxycodoneacetaminophen 7.5325 mg QID PRN pain #Mental health continue duloxetine 30 mg HS, hydroxyzine 25 mg BID PRN anxiety, paroxetine 40 mg daily, quetiapine 100 mg @1700 and 400 mg HS Patient is medically stable for discharge. Corresponded plan of care with urology team. Hospital medicine will sign off at this time. Please reach out with any questions or concerns. Admission and Anticipated Discharge Date Admission Date: February 26, 2025 Subjective Patient seen and evaluated at bedside. She reports feeling better compared to yesterday. She denies any shortness of breath or difficulty breathing. She has been weaned off supplemental oxygen this morning and remained stable on room air. She reports the constant achy suprapubic pain has subsided, though she still experiences intermittent sharp stabbing pain sensations. She is eager for discharge home. No additional complaints or concerns at this time. Physical Exam Physical Exam: General: No acute distress, nondiaphoretic, well-developed, well-nourished. Skin: Warm, dry. No rashes or peripheral edema noted. Cardiac: Regular rate and rhythm without murmurs gallops or rubs. Pulm: Clear to auscultation bilaterally without wheezes, rales or rhonchi. Normal respiratory effort. 95% on room air. Abdominal: Soft, nontender, nondistended. Bowel sounds present. : No Whitley catheter present. Neuro: A&O x3. No focal neurological deficits. Results & Data Results & Data Vital Signs (Past 12 Hours) Vital Signs Temp Pulse Pulse Resp BP Pulse Ox O2 Del Method 02/27/25 09:26 90 14 95 Room Air 02/27/25 07:50 98.1 F 84 16 131/83 95 Nasal Cannula 02/27/25 02:52 98.1 F 92 H 16 125/76 93 Room Air 02/26/25 23:37 98.2 F 77 16 133/77 95 Room Air O2 Flow Rate 02/27/25 09:26 02/27/25 07:50 2 02/27/25 02:52 02/26/25 23:37 Laboratory Results Reviewed CBC Reviewed BMP/chemistries PG Care Time/CCT Total # of Minutes Spent Total Time Spent with Patient: Total time spent is greater than 50% in coordination of care (as documented) at patient's floor/unit and/or counseling patient: Coding Level of Care Code 71206 SUB INP/OBS CARE 3/50MIN Diagnoses Postoperative hypoxia R09.02; Z98.890 Chronic pain G89.29 Hyperlipidemia E78.5 Edema R60.9 Anxiety F41.9
--- NOTE | 2025-02-27 10:43 | Discharge Summary ---
<Statement entered by Dusty Castro MD - 02/27/25 12:20> Chart reviewed Patient discussed plan reviewed and agree as written. Date of Service February 27, 2025 Admission HPI Per Admitting Provider 54-year-old female with right ureteral here for right stone treatment and stent placement. Principal Diagnosis Right ureteral stone Discharge Exam Constitutional well developed and well nourished; no acute distress Respiratory normal respiratory effort and able to speak in complete sentences Musculoskeletal Extremities: extremities normal to inspection Psychiatric Orientation: alert and oriented x 3 Discharge Data Allergies Allergy/AdvReac Type Severity Reaction Status Date / Time tetanus toxoid, adsorbed Allergy Unknown UNKNOWN Verified 02/26/25 07:42 PER PT codeine AdvReac Unknown Vomiting Verified 02/26/25 07:42 Consultations 02/26/25 14:31 Consult Hospitalist Routine Procedures Performed Operation Date: 02/26/25 08:35 Actual Procedures p Cystoscopy, Ureteronephroscopy, Retrograde Pyelogram, with Ureteral Dilation, Laser Destruction of the Stone, (Right) - Dusty Castro MD s Insertion of Stent Catheter - Right(Right) - Dusty Castro MD Ordered Studies 02/26/25 09:55 FL retrograde includes kub Routine Hospital Course (1) Right ureteral stone: (2) Chronic pain: Plan 54-year-old female who underwent cystoscopy, right URS with stone destruction and right stent placement on 02/26/2025 POD #1 s/p cystoscopy, right uteroscopy, stone destruction, right ureteral stent placement Unfortunately due to hypoxia patient had to be admitted postoperatively- received duoneb treatments, lasix for fluid overload, echo for hx CHF Tolerating the ureteral stent, does admit to pain that is somewhat controlled by narcotics Labs reviewed -creatinine 1.6, WBCs 7.38, hemoglobin 10.3 Urine culture from OR is currently pending Chest xray ordered to check for additional fluid overload by hospitalist team today-Per hospitalist will give an additional dose of Lasix if so Echo is pending Continue supportive care and monitoring. No plan for further urologic intervention during this admission. Patient clinically stable will plan for discharge. Will arrange outpatient follow-up with our service for follow-up care for nephrolithiasis. Total Time Total Time Spent Total Time Spent (In Minutes): 25 Discharge Plan Discharge Items Patient Disposition: Home - Self-Care Reason For Visit: Calculus of Ureter Discharge Diagnosis: calculius of ureter, postoperative hypoxia Activity: Per Instructions section Non-emergency contact: Primary Care Provider and Urologist Call non-emergency contact if: your pain is not controlled and your temperature is above 101.5 Follow-up/Referrals: Kj Daniel DO [Primary Care Provider] - Diet: Regular Addtl Attending Provider Instructions: The surgery you had was ureteroscopy with laser lithotripsy and stent placement. Please take all medications as prescribed and keep all follow-ups as scheduled. Please call our office at [phone] with any questions, concerns or need to reschedule appointments for any reason. We are happy to assist you. Medications: please resume your normal medications as previously prescribed. You have been prescribed Bactrim to take for five days. Please pick this medication up and take as directed. For pain, it is ok to take tylenol alternating with ibuprofen. You can also take AZO, which can be purchased puvn-sax-pzagfti at the drugstore. Be aware this turns your urine a bright orange color. If you are prescribed a stronger m edication you can take this according to instructions on the label. What to expect after your ureteroscopy and stone removal procedure: You may notice small pieces of stone or stone dust/gravel in your urine over the next few days. Drink plenty of liquids to help flush your system. You may notice some blood in your urine. As long as you are able to urinate, this is ok. You have a ureteral stent in place - this will need to be removed. As long as the stent is in place, you may see some blood in the urine. You may have pain in your side when you urinate. We will have you come to the office for stent removal in approximately 2-3 weeks. Stent was left in place to allow stone fragments to pass. We will plan to get an x-ray approximately 2 days prior to your stent removal to assess for residual stones. If there multiple large fragments remaining, we may need to perform a second look procedure. When to call [facility] Urology at [phone]: Fever of 101F or higher Heavy bleeding Pain that is not controlled with medicine Uncontrolled vomiting Problems urinating or inability to urinate Addtl Residential Sales Associate Provider Instructions: Do, You required some supplemental oxygen after your urology procedures. This was likely a multifactorial cause between anesthesia, pain medications, and IV fluids. Your postoperative chest x-ray was suggestive of mild fluid overload in your lungs. You were given IV Lasix (diuretic medication) and breathing treatments with the respiratory team. You are no longer requiring supplemental oxygen and are stable on room air with clear lung sounds. You also had an echocardiogram (ultrasound of your heart) which was overall unremarkable. You have normal heart size and function, no wall motion abn ormalities, mild mitral regurgitation. As we discussed, you can have your PCP provide you with a referral to reestablish with neurology with neurologist Dr. Hawley. Continue your home medications as prescribed. Follow the additional instructions from your urology team listed above. I recommend you follow-up with your PCP within 1 month. It was a pleasure taking care of you while you were in the hospital! Pending Studies at Discharge: Yes (Echo) Stand-Alone Forms: My [facility] Medications and DC Order Prescriptions: New sulfamethoxazole-trimethoprim [Bactrim DS] 800-160 mg tablet 1 tab PO BID 5 Days Qty: 10 0RF Continued atorvastatin 10 mg tablet 10 mg PO QAM albuterol sulfate 90 mcg/actuation HFA aerosol inhaler 1 inh inhalation QID PRN (Reason: Wheezing) furosemide [Lasix] 40 mg tablet 40 mg PO QAM PRN (Reason: Other) Rx Instructions: Leg Swelling duloxetine [Cymbalta] 30 mg capsule,delayed release(DR/EC) 30 mg PO HS prazosin 2 mg capsule 2 mg PO QPM Linzess 72 mcg capsule 72 mcg PO QAM PRN (Reason: Constipation) baclofen 10 mg tablet 10 mg PO DAILY PRN (Reason: Spasms) oxycodone-acetaminophen 7.5-325 mg tablet 1 tab PO QID PRN (Reason: Pain) hydroxyzine HCl 25 mg tablet 25 mg PO BID PRN (Reason: Anxiety) oxcarbazepine [Trileptal] 300 mg tablet 300 mg PO TID melatonin 10 mg tablet 10 mg PO HS PRN (Reason: Sleep) paroxetine HCl [Paxil] 40 mg tablet 40 mg PO QAM ibuprofen 800 mg tablet 800 mg PO Q8H PRN (Reason: Pain) gabapentin 600 mg tablet 600 mg PO TID morphine 15 mg tablet extended release 15 mg PO HS quetiapine [Seroquel] 100 mg tablet 100 mg PO QPM Patient Comments: Take 100 mg at supper and then takes 400 mg at bedtime quetiapine [Seroquel] 400 mg tablet 400 mg PO HS Patient Comments: Takes a total of 500 mg daily Discharge Orders: Discharge Order (Routine); Ordered 02/27/25 Ordered By: Mireille Ferrari Admission Data Admit Date/Time: 02/26/25 14:25 Attending Provider: Dusty Castro Admit Provider: Dusty Castro Primary Care Provider: Kj Daniel Other Providers: Bhaskar Parrish Coding Level of Care Code 12973 IN/OBS DISCH 30 MIN/LESS Diagnoses Right ureteral stone N20.1 Chronic pain G89.29
[2025-02-27 11:21] VITALS: BP 123/77; PULSE 91; RESP 16; O2SAT 94
== END 2025-02-27 14:04 | disposition home or self-care (01) ==
LOC: ASU 07:18 → 3N 07:18